=== PATIENT | male | born 1980 | race American Indian/Alaskan Native ===

== ENCOUNTER 2019-05-03 19:00 | Emergency (ER) | payer SELFPAY ==
--- NOTE | 2019-05-03 20:22 | Emergency Department Report ---
Blank Doc - Documentation Documentation: This is a 38-year-old male that presents with right 5th finger lac from glass. This initial assessment/diagnostic orders/clinical plan/treatment(s) is/are subject to change based on patient's health status, clinical progression and re- assessment by fellow clinical providers in the ED. Further treatment and workup at subsequent clinical providers discretion. Patient/guardians urged not to elope from the ED as their condition may be serious if not clinically assessed and managed. Initial orders include: 1- Patient sent to [facility] for further evaluation and treatment 2- xray
[2019-05-03 20:24] VITALS: BP 123/87
[2019-05-03] MEDS ORDERED: BOOSTRIX IM ONE ×2 (22:44→23:09)
[2019-05-03] MEDS ORDERED: TYLENOL PO ONE (22:44)
[2019-05-03] MEDS ORDERED: IBUPROFEN PO ONE ×2 (22:44→23:09)
[2019-05-03] MEDS ORDERED: XYLOCAINE 1% MPF 5 mL INFILTRATI ONE (22:44)
[2019-05-03] MEDS ORDERED: XYLOCAINE 1% MPF 5 mL ONE ×2 (22:56→23:10)
[2019-05-03] MEDS ORDERED: TYLENOL ONE (23:09)
--- NOTE | 2019-05-03 23:22 | Emergency Department Report ---
- General Chief Complaint: Wound/Laceration Stated Complaint: CUT RT PINKY FINGER Time Seen by Provider: 05/03/19 20:07 Source: patient Mode of arrival: Ambulatory Limitations: No Limitations - History of Present Illness Initial Comments: Patient is a 38-year-old [place] male with no past medical history presents to the ED with complaint of acute onset bleeding painful dorsal right fifth finger laceration after he accidentally cut his dorsal right fifth finger when handling pieces of glass at work about 10 hours ago. Patient states that the bleeding is now well controlled after dressing with bulky dressings. Patient states that he is not up-to-date with his tetanus vaccinations. The patient denies numbness or tingling or weakness of right hand or right fifth finger. Patient also denies nausea, vomiting, dizziness, fever or chills. -: Sudden, hour(s) (10) Location: other (right 5th finger) Extremity Location: Right: Hand (right 5th finger laceration on dorsum) Place: work Patient Tetanus UTD: No (given during this visit) Context: accidental, sharp object use Associated Symptoms: pain, suspect foreign body present. denies: loss of feeling/numbness, unable to move injured part, weakness followed by dizziness, nausea/vomiting, fever - Related Data Previous Rx's Medication Instructions Recorded Last Taken Type Acetaminophen/Codeine [Tylenol 1 tab PO Q6H PRN #12 tab 05/03/19 Unknown Rx /Codeine # 3 tab] Ibuprofen [Motrin] 600 mg PO Q8H PRN #20 tablet 05/03/19 Unknown Rx cephALEXin [Keflex] 500 mg PO Q8HR #30 cap 05/03/19 Unknown Rx Allergies Allergy/AdvReac Type Severity Reaction Status Date / Time No Known Allergies Allergy Unverified 05/03/19 19:06 ED Review of Systems ROS: Stated complaint: CUT RT PINKY FINGER Other details as noted in HPI Constitutional: denies: chills, fever Eyes: denies: eye pain, eye discharge, vision change ENT: denies: ear pain, throat pain Respiratory: denies: cough, shortness of breath, wheezing Cardiovascular: denies: chest pain, palpitations Endocrine: no symptoms reported Gastrointestinal: denies: abdominal pain, nausea, diarrhea Genitourinary: denies: urgency, dysuria Musculoskeletal: arthralgia (dorsal right 5th finger laceration and pain). denies: back pain, joint swelling Skin: other (Bleeding laceration of dorsal right 5th finger). denies: rash, lesions Neurological: denies: headache, weakness, paresthesias Psychiatric: denies: anxiety, depression Hematological/Lymphatic: denies: easy bleeding, easy bruising ED Past Medical Hx - Past Medical History Previous Medical History?: No - Surgical History Past Surgical History?: No - Social History Smoking Status: Current Every Day Smoker - Medications Home Medications: Home Medications Medication Instructions Recorded Confirmed Last Taken Type Acetaminophen/Codeine [Tylenol 1 tab PO Q6H PRN #12 tab 05/03/19 Unknown Rx /Codeine # 3 tab] Ibuprofen [Motrin] 600 mg PO Q8H PRN #20 tablet 05/03/19 Unknown Rx cephALEXin [Keflex] 500 mg PO Q8HR #30 cap 05/03/19 Unknown Rx ED Physical Exam - General Limitations: No Limitations General appearance: alert, in no apparent distress - Head Head exam: Present: atraumatic, normocephalic, normal inspection - Eye Eye exam: Present: normal appearance, PERRL, EOMI. Absent: scleral icterus, conjunctival injection, nystagmus Pupils: Present: normal accommodation - ENT ENT exam: Present: normal exam, normal orophraynx, mucous membranes moist, TM's normal bilaterally, normal external ear exam - Neck Neck exam: Present: normal inspection, full ROM - Respiratory Respiratory exam: Present: normal lung sounds bilaterally. Absent: respiratory distress, wheezes, rales, stridor, chest wall tenderness, accessory muscle use, decreased breath sounds, prolonged expiratory - Cardiovascular Cardiovascular Exam: Present: regular rate, normal rhythm, normal heart sounds. Absent: systolic murmur, diastolic murmur, rubs, gallop - GI/Abdominal GI/Abdominal exam: Present: soft, normal bowel sounds. Absent: tenderness, guarding, rebound, hyperactive bowel sounds, hypoactive bowel sounds, organomegaly, bruit, pulsatile mass - Rectal Rectal exam: Present: deferred - Extremities Exam Extremities exam: Present: normal inspection, full ROM, tenderness (dorsal right 5th finger due to a bleeding 5 cm laceration), normal capillary refill. Absent: pedal edema, joint swelling - Back Exam Back exam: Present: normal inspection, full ROM. Absent: tenderness, CVA te nderness (R), CVA tenderness (L), muscle spasm, paraspinal tenderness, vertebral tenderness - Neurological Exam Neurological exam: Present: alert, oriented X3, CN II-XII intact, normal gait, reflexes normal - Psychiatric Psychiatric exam: Present: normal affect, normal mood - Skin Skin exam: Present: warm, dry, intact, normal color, other (Bleeding 5 cm laceration on dorsal right 5th finger). Absent: rash ED Course Vital Signs 05/03/19 20:21 Temperature 98.2 F Pulse Rate 77 Respiratory 18 Rate Blood Pressure 123/87 O2 Sat by Pulse 100 Oximetry - Reevaluation(s) Reevaluation #1: 05/03/19 23:23 This is a 38-year-old male who presented to the ED with bleeding and also right fifth finger laceration with pain. In the ED, patient is alert and oriented 3 and is not in distress. Patient was treated for pain in the ED and also received tetanus postoperative approximation. Right hand x-ray shows no fractures or foreign in the tissues of the right fifth finger. The bleeding laceration was cleaned thoroughly and had lidocaine 1% solution injected as a digital block to create local anesthesia. The bleeding laceration was then after suture protocol and the patient tolerated the procedure well. The wound was then dressed appropriately and on reevaluation, the patient is neurovascularly intact. Patient was discharged home on pain medications on pro phylactic antibiotics and the patient is advised to follow-up with his primary care physician in 7-10 days for reevaluation or return to the ED immediately if symptoms get worse. Patient was advised to return to the ED or to his primary care physician in 12-14 days for suture removal. - Laceration /Wound Repair Right Dorsal Finger Wound Location: upper extremity (dorsal right small finger laceration) Wound Length (cm): 5 Wound's Depth, Shape: superficial, linear Wound Explored: contaminated Irrigated w/ Saline (ccs): 40 Betadine Prep?: Yes Anesthesia: 1% Lidocaine Volume Anesthetic (ccs): 5 Wound Debrided: extensive Wound Repaired With: sutures Suture Size/Type: 4:0, proline Number of Sutures: 11 Layer Closure?: No Sterile Dressing Applied?: No Progress: Patient tolerated procedure well. Neurovascularly intact. ED Medical Decision Making - Radiology Data Radiology results: report reviewed, image reviewed - Medical Decision Making This is a 38-year-old male who presented to the ED with bleeding and also right fifth finger laceration with pain. In the ED, patient is alert and oriented 3 and is not in distress. Patient was treated for pain in the ED and also received tetanus postoperative approximation. Right hand x-ray shows no fractures or foreign in the tissues of the right fifth finger. The bleeding laceration was cleaned thoroughly and had lidocaine 1% solution injected as a digital block to create local anesthesia. The bleeding laceration was then after suture protocol and the patient tolerated the procedure well. The wound was then dressed appropriately and on reevaluation, the patient is neurovascularly intact. Patient was discharged home on pain medications on prophylactic antibiotics and the patient is advised to follow-up with his primary care physician in 7-10 days for reevaluation or return to the ED immediately if symptoms get worse. Patient was advised to return to the ED or to his primary care physician in 12-14 days for suture removal. - Differential Diagnosis finger laceration; finger fracture; foreign bodies in finger tissues Critical care attestation.: If time is entered above; I have spent that time in minutes in the direct care of this critically ill patient, excluding procedure time. ED Disposition Clinical Impression: Laceration of right little finger w/o foreign body w/o damage to nail Qualifiers: Encounter type: initial encounter Qualified Code(s): S61.216A - Laceration without foreign body of right little finger without damage to nail, initial encounter Disposition: DC- TO HOME OR SELFCARE Is pt being admited?: No Does the pt Need Aspirin: No Condition: Stable Instructions: Finger Laceration (ED) Additional Instructions: Take medications with food, drink plenty of fluids and follow up with your primary care physician in 7-10 days for reevaluation. Return to the ED immediately if symptoms get worse. Otherwise return to the ED in 12-14 days for suture removal. Prescriptions: cephALEXin [Keflex] 500 mg PO Q8HR #30 cap Ibuprofen [Motrin] 600 mg PO Q8H PRN #20 tablet PRN Reason: Pain Acetaminophen/Codeine [Tylenol /Codeine # 3 tab] 1 tab PO Q6H PRN #12 tab PRN Reason: Pain , Severe (7-10) Referrals: [facility] [Outside] - 3-5 Days Time of Disposition: 23:19 Print Language: RUSSIAN
--- NOTE | 2019-05-04 10:04 | XRay Report ---
RIGHT HAND 3 VIEWS INDICATION / CLINICAL INFORMATION: lac r/o foreign body. COMPARISON: None available. FINDINGS: No fracture or other skeletal abnormality. No appreciable radiopaque foreign body. Signer Name: Madhu Bose MD Signed: 05/03/2019 9:29 PM Workstation Name: [id number]
== END 2019-05-03 23:30 | disposition home or self-care (01) ==
LOC: ED 19:00
DX: S61.216A Laceration without foreign body of right little finger without damage to nail, initial encounter (principal); F17.200 Nicotine dependence, unspecified, uncomplicated; Z79.899 Other long term (current) drug therapy; W25.XXXA Contact with sharp glass, initial encounter; Y93.89 Activity, other specified; Y92.69 Other specified industrial and construction area as the place of occurrence of the external cause; Y99.8 Other external cause status
CPT/HCPCS: 90471; 90715